=== PATIENT | female | born 1985 | race African-American/Black ===

== ENCOUNTER 2021-09-24 00:47 | Inpatient (IN) | payer OTHER ==
[2021-09-24] MEDS ORDERED: ELECTROLYTE-148 SOLN 1,000 ML IV SCH (01:30)
[2021-09-24] MEDS ORDERED: LIDOCAINE HCL 1% PRESERVATIVE FREE - 30ML VIAL ONE (01:53)
[2021-09-24] MEDS ORDERED: OXYTOCIN 20 UNITS in 0.9% NS 20 UNIT/1,000 ML INFUS.BAG IV ONE (01:54)
[2021-09-24 02:10] LABS: BASO % 0.5 % (0-2.0); EOS % 0.1 % (0-4.5); HEMATOCRIT 36.5 % (32.4-45.2); HEMOGLOBIN 11.8 GM/dL (10.7-15.3); LYMPH % 21.1 % (8-40); MCH 26.3 pg (25.7-33.7); MCHC 32.4 g/dl (32.0-36.0); MEAN CELL VOLUME 81.2 fl (80-96); MEAN PLT VOLUME 9.9 fl (7.5-11.1); NEUT % 70.3 % (42.8-82.8); PLATELET COUNT 297 10^3/uL (134-434); RDW 17.7 % (11.6-15.6); WHITE BLOOD COUNT 9.6 K/mm3 (4.0-10.0)
[2021-09-24] MEDS: OXYTOCIN 20 UNITS in 0.9% NS 20 UNIT/1,000 ML INFUS.BAG IV SCH ×2 (02:16→13:02)
[2021-09-24] MEDS ORDERED: ceFAZolin 2 GRAM PREMIX BAG IVPB ONE (02:20)
[2021-09-24] MEDS ORDERED: ceFAZolin SODIUM 1 GM VIAL ONE (02:20)
[2021-09-24 02:31] LABS: CALCIUM 9.6 mg/dL (8.5-10.1)
[2021-09-24 02:32] LABS: BLOOD UREA NITROGEN 9.9 mg/dL (7-18)
[2021-09-24 02:35] LABS: CREATININE 0.8 mg/dL (0.55-1.3)
[2021-09-24 02:42] LABS: INR 0.9 (0.83-1.09); PROTHROMBIN TIME (PATIENT) 10.3 SEC (9.7-13.0)
[2021-09-24 02:45] LABS: ACTIVATED PTT 25.8 SECONDS (25.2-36.5)
[2021-09-24] MEDS ORDERED: BISACODYL 10 MG SUPP.RECT RC PRN (03:01)
[2021-09-24] MEDS ORDERED: oxyCODONE HCL 5 MG TABLET PO PRN (03:01)
[2021-09-24] MEDS ORDERED: ACETAMINOPHEN 325 MG TABLET (FP) PO PRN (03:01)
[2021-09-24] MEDS ORDERED: METHYLERGONOVINE MALEATE 0.2 MG/1 ML AMP IM PRN (03:01)
[2021-09-24 04:05] VITALS: BMI 28.3
[2021-09-24] MEDS ORDERED: IBUPROFEN 600 MG TABLET (FP) PO ONE (04:12)
[2021-09-24] MEDS: IBUPROFEN 600 MG TABLET (FP) PO PRN (04:15)
[2021-09-24] MEDS: WITCH HAZEL 50% (TUCKS) 40 PAD/JAR PAD TP PRN (06:32)
[2021-09-24] MEDS: BENZOCAINE 20% 57 GM BOTTLE TP PRN (06:32)
[2021-09-24] MEDS: FERROUS SO4 325 MG TABLET (FP) PO SCH ×3 (07:50→17:42)
[2021-09-24] MEDS: PRENATAL VITAMINS W/ FOLIC ACID TABLET (FP) PO SCH (09:28)
[2021-09-24] MEDS: BENZOCAINE 28 GM HEMORRHOIDAL OINTMENT TP PRN (19:52)
[2021-09-25] MEDS: FERROUS SO4 325 MG TABLET (FP) PO SCH ×3 (08:27→18:17)
[2021-09-25 08:46] LABS: BASO % 0.4 % (0-2.0); EOS % 0.6 % (0-4.5); HEMATOCRIT 28.5 % (32.4-45.2); HEMOGLOBIN 9.1 GM/dL (10.7-15.3); LYMPH % 16.9 % (8-40); MCH 26.6 pg (25.7-33.7); MCHC 32.1 g/dl (32.0-36.0); MEAN CELL VOLUME 83.1 fl (80-96); MEAN PLT VOLUME 9.4 fl (7.5-11.1); MONO % 6.4 % (3.8-10.2); NEUT % 75.7 % (42.8-82.8); PLATELET COUNT 239 10^3/uL (134-434); RBC 3.43 M/mm3 (3.60-5.2); RDW 17.8 % (11.6-15.6); WHITE BLOOD COUNT 10.2 K/mm3 (4.0-10.0)
[2021-09-25] MEDS: PRENATAL VITAMINS W/ FOLIC ACID TABLET (FP) PO SCH (09:52)
[2021-09-25 20:59] VITALS: TEMP 98
[2021-09-25] MEDS ORDERED: SENNOSIDES/DOCUSATE COMBO (SENNA PLUS) TABLET (UD) PO PRN (22:00)
[2021-09-26] MEDS: BENZOCAINE 20% 57 GM BOTTLE TP PRN (05:25)
[2021-09-26] MEDS: WITCH HAZEL 50% (TUCKS) 40 PAD/JAR PAD TP PRN (05:25)
[2021-09-26] MEDS: BENZOCAINE 28 GM HEMORRHOIDAL OINTMENT TP PRN (05:25)
[2021-09-26] MEDS: IBUPROFEN 600 MG TABLET (FP) PO PRN (05:25)
[2021-09-26] MEDS: FERROUS SO4 325 MG TABLET (FP) PO SCH ×2 (08:43→13:03)
[2021-09-26] MEDS: PRENATAL VITAMINS W/ FOLIC ACID TABLET (FP) PO SCH (09:33)
[2021-09-26 09:49] VITALS: BP 127/79; PULSE 85
== END 2021-09-26 16:05 | disposition home or self-care (01) | DRG 560 ==
LOC: JLDR 00:47 → J3W 05:01
PROVIDERS: ADMIT Obstetrics & Gynecology; ATTEND Obstetrics & Gynecology
PROC: 10E0XZZ Delivery of Products of Conception, External Approach (ICD-10-PCS; principal; 2021-09-24)
PROC: 0UQG7ZZ Repair Vagina, Via Natural or Artificial Opening (ICD-10-PCS; 2021-09-24)
PROC: 0W8NXZZ Division of Female Perineum, External Approach (ICD-10-PCS; 2021-09-24)
DX: O40.3XX0 Polyhydramnios, third trimester, not applicable or unspecified (principal); O71.4 Obstetric high vaginal laceration alone; Z3A.41 41 weeks gestation of pregnancy; Z37.0 Single live birth; O98.519 Other viral diseases complicating pregnancy, unspecified trimester; R76.12 Nonspecific reaction to cell mediated immunity measurement of gamma interferon antigen response without active tuberculosis
CPT/HCPCS: 36415; 59025; 59409; 80048; 85025; 85610; 85730; 86780; 86850; 86900; 86901; C9803-CS; G0463-25; U0003; U0005